=== PATIENT | male | born 1980 | race African-American/Black ===

== ENCOUNTER 2018-03-17 15:43 | Emergency (ER) | payer OTHER, SELFPAY ==
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
[2018-03-17] MEDS ORDERED: Lidocaine 1% w/Epinephrine 1:100K 20 ML VIAL ONE (16:35)
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
[2018-03-17 16:56] LABS: #Lymphocytes 0.6 thou/uL (1.20-3.40); #Monocytes 0.6 thou/uL (0.11-0.59); #Neutrophils 9.1 thou/uL (1.40-6.50); %Basophils 0.2 % (0.0-1.0); %Eosinophils 0.3 % (0.0-10.0); %Lymphocytes 5.4 % (21.0-51.0); %Monocytes 6.1 % (0.0-10.0); Hemoglobin 16.1 g/dL (14.0-18.0); Mean Corpuscular HGB CONC 32.7 g/dL (32.0-36.0); Mean Corpuscular Hemoglobin 31.8 pg (27.0-31.0); Mean Corpuscular Volume 97.4 fl (80.0-94.0); Mean Platelet Volume 9.3 fL (7.4-10.4); Platelet Count 135 thou/uL (130-400); RBC Distribution Width 12.4 % (11.5-14.5); Red Blood Cell (RBC) Count 5.05 mill/uL (4.70-6.10); White Blood Cell (WBC) Count 10.4 thou/uL (4.8-10.8)
[2018-03-17 17:07] LABS: ALT (SGPT) 18 U/L (8-55); AST (SGOT) 20 U/L (5-34); Albumin 3.4 g/dL (3.5-5.0); Alcohol Less than 10 mg/dL (Less than 10); Alkaline Phosphatase 77 U/L (40-150); Anion Gap 11 mmol/L (10-20); BUN (Urea Nitrogen) 9 mg/dL (8.9-20.6); Bilirubin, Total 0.5 mg/dL (0.2-1.2); Calc. Creatinine Clearance 0 mL/min (70-130); Calcium 8.5 mg/dL (7.8-10.44); Carbon Dioxide 20 mmol/L (22-29); Chloride 109 mmol/L (98-107); Estimated GFR-MDRD Greater than 90; Globulin 2.1 g/dL (2.4-3.5); Glucose 206 mg/dL (70-105); Protein, Total 5.5 g/dL (6.0-8.3); Sodium 136 mmol/L (136-145)
[2018-03-17] MEDS ORDERED: Adacel (T-DAP) 0.5 ML VIAL ONE (17:16)
[2018-03-17] MEDS ORDERED: Bacitracin Zinc 1 Packet ONE (17:17)
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
[2018-03-17] MEDS ORDERED: ISOVUE-370 76%-LOCM 1 ML ONE (18:37)
== END 2018-03-17 19:22 | disposition home or self-care (01) ==
LOC: ERS 15:43
DX: S12.400A Unspecified displaced fracture of fifth cervical vertebra, initial encounter for closed fracture (principal); S61.210A Laceration without foreign body of right index finger without damage to nail, initial encounter; V89.2XXA Person injured in unspecified motor-vehicle accident, traffic, initial encounter
CPT/HCPCS: 12001; 36415; 70450; 70498; 71045; 71260; 72125; 74177; 80053; 80307; 85025; 86850; 86900; 86901; 90715; G0390; J2001

== ENCOUNTER 2018-03-25 10:43 | Emergency (ER) | payer OTHER, SELFPAY ==
[2018-03-25] MEDS ORDERED: Bacitracin Zinc 1 Packet ONE (12:32)
[2018-03-25] MEDS ORDERED: Ketorolac Tromethamine 30 MG/ML VIAL ONE (12:48)
[2018-03-25] MEDS ORDERED: cloNIDine 0.1 MG TAB ONE (13:30)
[2018-03-25] MEDS ORDERED: Lisinopril 10 MG TAB ONE (14:21)
== END 2018-03-25 15:45 | disposition home or self-care (01) ==
LOC: ERS 10:43
DX: S12.9XXA Fracture of neck, unspecified, initial encounter (principal); I10 Essential (primary) hypertension; F17.210 Nicotine dependence, cigarettes, uncomplicated; V49.9XXA Car occupant (driver) (passenger) injured in unspecified traffic accident, initial encounter
CPT/HCPCS: 96372; J1885